=== PATIENT | female | born 1945 | race Caucasian/White ===

== ENCOUNTER → 2017-06-09 | Outpatient (CLI) | payer MEDICARE ==
--- NOTE | 2017-06-09 12:37 | RADIOLOGY REPORT PS360 ---
BONE DENSITOMETRY(HIP:LT SPINE HISTORY: POST MENOPAUSAL ORDERING PHYSICIAN: Jozef Quach MD PATIENT AGE: 72 years COMPARISON: None FINDINGS: The BMD measured at the right femoral neck is 0.835 g/cm squared with a T score of -1.5. This is considered Osteopenic according to the World Health Organization criteria. Fracture risk is Moderate. Treatment is advised. Recommend follow-up exam May 2019 IMPRESSION: Osteopenia with moderate fracture risk
--- NOTE | 2017-06-12 17:03 | RADIOLOGY REPORT PS360 ---
DIG MAMM-SCREEN MIKE W/CAD CAD Screening ORDERING PHYSICIAN : Jozef Quach MD PATIENT AGE: 72 years GENDER: Female COMPARISON: Previous mammograms: April digital mammogram Outside film screen mammogram November 2011 INDICATION: Routine screening 72-year-old. No hormones no new complaints Family history. Sister with breast cancer age 73 TECHNIQUE: Standard CC and MLO images were obtained. R2 CAD reviewed. FINDINGS: Low-density breast bilaterally with no dominant mass nor suspicious calcifications either breast. CAD highlights no areas of concern. RIGHT BREAST: No new findings stable LEFT BREAST: No areas of concern. Tiny area of density at the lateral left breast is stable IMPRESSION: Stable bilateral mammogram Low-density breast with no areas of significant concern Bilateral follow-up one year BI-RADS CATEGORY: 1_Negative RECOMMENDED FOLLOWUP: 12M 12 MONTH FOLLOW-UP (A letter has been sent to the patient regarding results of the study.)
== END ==
LOC: RAD 09:11
DX: Z12.31 Encounter for screening mammogram for malignant neoplasm of breast (principal); Z78.0 Asymptomatic menopausal state; Z13.820 Encounter for screening for osteoporosis